=== PATIENT | male | born 1950 | race Caucasian/White ===

== ENCOUNTER 2016-11-19 09:36 | Emergency (ER) | payer BC, OTHER ==
[2016-11-19 09:50] VITALS: BP 137/74
--- NOTE | 2016-11-19 10:21 | UC ---
Throat Pain/Nasal John HPI - HPI Summary HPI Summary: sore throat,cough, and left eye drainage ---4-5 days no fevers, 2 member of the family have strep - History of Current Complaint Chief Complaint: UCRespiratory Stated Complaint: THROAT AND EYE COMPLAINT Time Seen by Provider: 11/19/16 09:44 Hx Obtained From: Patient Onset/Duration: Gradual Onset, Lasting Days - 4, Still Present, Worse Since - past 2 days Severity: Moderate Pain Intensity: 4 Pain Scale Used: 0-10 Numeric Cough: Nonproductive Associated Signs & Symptoms: Positive: Nasal Discharge - Allergies/Home Medications Allergies/Adverse Reactions: Allergies Allergy/AdvReac Type Severity Reaction Status Date / Time Levofloxacin [From Levaquin] Allergy Severe Joint Pain Verified 11/19/16 09:53 leva Allergy Severe See Comment Uncoded 11/19/16 09:53 NSAID Allergy See Comment Uncoded 08/22/15 08:00 Home Medications: Home Medications Albuterol HFA INHALER* [Ventolin HFA Inhaler*] 11/19/16 [History] Mometasone/Formoter 200/5 MDI* [Dulera 200/5 MDI*] 11/19/16 [History] PMH/Surg Hx/FS Hx/Imm Hx Previously Healthy: No Cardiovascular History Of: Reports: Cardiac Disorders - arrythmias, Hypertension Respiratory History Of: Reports: Asthma - as child - Surgical History Surgical History: Yes Surgery Procedure, Year, and Place: double hernia - Family History Known Family History: Positive: None Family History: no cardiovascular issues in family lineage - Social History Occupation: Employed Full-time - [place] [employer] Lives: With Family Alcohol Use: Occasionally Substance Use Type: None Smoking Status (MU): Never Smoked Tobacco When Did the Patient Quit Smoking/Using Tobacco: 25 yrs ago - Immunization History Most Recent Influenza Vaccination: fall 2014 Most Recent Pneumonia Vaccination: 2013 Review of Systems Constitutional: Negative Skin: Negative Eyes: Drainage - left, Eye Redness - left ENT: Sore Throat Respiratory: Cough Cardiovascular: Negative Gastrointestinal: Negative Genitourinary: Negative Motor: Negative Neurovascular: Negative Musculoskeletal: Negative Neurological: Negative Psychological: Negative All Other Systems Reviewed And Are Negative: Yes Physical Exam Triage Information Reviewed: Yes Appearance: Well-Appearing, No Pain Distress, Well-Nourished Vital Signs: Initial Vital Signs Temp 97.8 F 11/19/16 09:43 Pulse 64 11/19/16 09:43 Resp 18 11/19/16 09:43 BP 137/74 11/19/16 09:43 Pulse Ox 100 11/19/16 09:43 Vital Signs Reviewed: Yes Eye Exam: Normal Eyes: Positive: Conjunctiva Inflamed, Discharge ENT Exam: Normal ENT: Positive: Normal ENT inspection, Hearing grossly normal, Pharynx normal, Nasal congestion, TMs normal. Negative: Nasal drainage, Tonsillar swelling, Tonsillar exudate, Trismus, Muffled/hoarse voice Dental Exam: Normal Neck exam: Normal Neck: Positive: Supple, Nontender, No Lymphadenopathy Respiratory Exam: Normal Respiratory: Positive: Chest non-tender, Lungs clear, Normal breath sounds, No respiratory distress, No accessory muscle use Cardiovascular Exam: Normal Cardiovascular: Positive: RRR, No Murmur, Pulses Normal, Brisk Capillary Refill Musculoskeletal Exam: Normal Musculoskeletal: Positive: Strength Intact, ROM Intact, No Edema Neurological Exam: Normal Neurological: Positive: Alert, Muscle Tone Normal Psychological Exam: Normal Skin Exam: Normal Diagnostics - Laboratory Diagnostic Studies Completed/Ordered: RST (-) Throat Pain/Nasal Course/Dx - Course Assessment/Plan: Polytrim opthalmic drops, increase fluids, otc pain relieves, full throat cultur (pt request as his was + after culture but not on rapid ) follow with pcp - Differential Dx/Diagnosis Differential Diagnosis/HQI/PQRI: Laryngitis, Otitis Media, Pharyngitis, Sinusitis, URI Provider Diagnoses: OS Conjuctivitis, URI Discharge - Discharge Plan Condition: Stable Disposition: HOME Prescriptions: Polymyx/Trimethoprim OPTH* [Polytrim OPHTH*] 1 drop LEFT EYE Q4H #1 btl Patient Education Materials: How to Use Eye Drops (ED), Upper Respiratory Infection (ED), Conjunctivitis (ED) Referrals: Stoney Cerna MD [Primary Care Provider] - If Needed
== END 2016-11-19 10:51 | disposition home or self-care (01) ==
LOC: UCEAST 09:36
DX: H10.9 Unspecified conjunctivitis (principal); I49.9 Cardiac arrhythmia, unspecified; I10 Essential (primary) hypertension; J45.909 Unspecified asthma, uncomplicated; J06.9 Acute upper respiratory infection, unspecified; Z88.3 Allergy status to other anti-infective agents
CPT/HCPCS: 87070; 87651; 99211; G0463

== ENCOUNTER 2017-03-23 09:39 | Emergency (ER) | payer BC ==
[2017-03-23 10:59] VITALS: BP 101/90
--- NOTE | 2017-03-23 11:39 | UC ---
Lower Extremity/Ankle HPI - HPI Summary HPI Summary: right 5th toe pain swelling and bruising right 2,3,4,5 toes pain right 5th toe - History of Current Complaint Chief Complaint: UCLowerExtremity Stated Complaint: FOOT INJURY Time Seen by Provider: 03/23/17 11:35 Hx Obtained From: Patient Onset/Duration: Sudden Onset, Lasting Days - 2, Still Present Severity Initially: Moderate Severity Currently: Moderate Pain Intensity: 6 Pain Scale Used: 0-10 Numeric Aggravating Factor(s): Standing, Ambulation Alleviating Factor(s): Rest, Ice Able to Bear Weight: Yes - with pain - Allergies/Home Medications Allergies/Adverse Reactions: Allergies Allergy/AdvReac Type Severity Reaction Status Date / Time Levofloxacin [From Levaquin] Allergy Severe Joint Pain Verified 03/23/17 10:56 leva Allergy Severe See Comment Uncoded 03/23/17 10:56 NSAID AdvReac EARS RING Uncoded 03/23/17 10:56 PMH/Surg Hx/FS Hx/Imm Hx Previously Healthy: Yes Endocrine History: Dyslipidemia Cardiovascular History: Hypertension Respiratory History: Asthma - Surgical History Surgical History: Yes Surgery Procedure, Year, and Place: double hernia AGE 2 - Family History Known Family History: Positive: None Family History: no cardiovascular issues in family lineage - Social History Occupation: Retired Lives: With Family Alcohol Use: Occasionally Substance Use Type: None Smoking Status (MU): Never Smoked Tobacco When Did the Patient Quit Smoking/Using Tobacco: 25 yrs ago - Immunization History Most Recent Influenza Vaccination: fall 2014 Most Recent Pneumonia Vaccination: 2013 Review of Systems Constitutional: Negative Skin: Negative Eyes: Negative ENT: Negative Respiratory: Negative Cardiovascular: Negative Gastrointestinal: Negative Genitourinary: Negative Motor: Decreased ROM - right 5th toe Neurovascular: Negative Musculoskeletal: Negative, Arthralgia - 2,3,4,5 right toes with bruising, Edema Neurological: Negative Psychological: Negative All Other Systems Reviewed And Are Negative: Yes Physical Exam Triage Information Reviewed: Yes Appearance: Well-Appearing, No Pain Distress, Well-Nourished Vital Signs: Initial Vital Signs Temp 98.5 F 03/23/17 10:57 Pulse 66 03/23/17 10:57 Resp 16 03/23/17 10:57 BP 101/90 03/23/17 10:57 Pulse Ox 97 03/23/17 10:57 Vital Signs Reviewed: Yes Eye Exam: Normal Eyes: Positive: Conjunctiva Clear ENT Exam: Normal ENT: Positive: Normal ENT inspection, Hearing grossly normal. Negative: Nasal congestion, Nasal drainage, Trismus, Muffled/hoarse voice Dental Exam: Normal Neck exam: Normal Neck: Negative: Supple, Nontender, No Lymphadenopathy Respiratory Exam: Normal Respiratory: Positive: Chest non-tender, No respiratory distress, No accessory muscle use Cardiovascular Exam: Normal Cardiovascular: Positive: RRR, Pulses Normal, Brisk Capillary Refill Musculoskeletal Exam: Normal Musculoskeletal: Positive: Strength Intact, ROM Intact, Edema @ - distal right foot Neurological Exam: Normal Neurological: Positive: Alert, Muscle Tone Normal Psychological Exam: Normal Skin Exam: Normal Diagnostics - Laboratory Diagnostic Studies Completed/Ordered: non-displaced right th metatarsal fx Lower Extremity Course/Dx - Course Course Of Treatment: cam boot, rice, tylenol follow with ortho - Differential Dx/Diagnosis Differential Diagnosis/HQI/PQRI: Contusion, Fracture (Closed), Sprain, Strain Provider Diagnoses: right fifth metatarsal fracture,no displacement-- Discharge - Discharge Plan Condition: Stable Disposition: HOME Patient Education Materials: Toe Fracture (ED), Foot Contusion (ED), RICE Therapy (ED) Referrals: Sammy Laboy MD [Medical Doctor] - 1 Week
--- NOTE | 2017-03-23 12:01 | RAD ---
INDICATION: Right foot pain COMPARISON: None TECHNIQUE: AP, lateral, and oblique views were obtained. FINDINGS: There is a nondisplaced fracture of the proximal phalanx of the fifth toe. There are no other fractures. There is associated soft tissue swelling. The joint spaces are maintained. IMPRESSION: FRACTURE FIFTH TOE.
== END 2017-03-23 12:28 | disposition home or self-care (01) ==
LOC: UCEAST 09:39
DX: S92.514A Nondisplaced fracture of proximal phalanx of right lesser toe(s), initial encounter for closed fracture (principal); S90.121A Contusion of right lesser toe(s) without damage to nail, initial encounter; X58.XXXA Exposure to other specified factors, initial encounter; Y93.9 Activity, unspecified; Y92.9 Unspecified place or not applicable; E78.5 Hyperlipidemia, unspecified; I10 Essential (primary) hypertension; J45.909 Unspecified asthma, uncomplicated; Z88.6 Allergy status to analgesic agent; Z88.1 Allergy status to other antibiotic agents; Z87.891 Personal history of nicotine dependence
CPT/HCPCS: 99212; G0463

== ENCOUNTER 2018-04-19 17:06 | Emergency (ER) | payer BC ==
[2018-04-19 18:36] VITALS: BP 138/77
--- NOTE | 2018-04-19 19:23 | UC ---
Hip/Pelvis Pain - HPI Summary HPI Summary: The patient is a 67 y/o M presenting to [facility] with a chief complaint of left hip pain that radiates to his left leg starting over the last few days. He reports that he has been exercising more with physical therapy, and he's been carrying heavy grocery bags. The pain is aggravated by ambulation and alleviated by rest. The aching pain is rated 5/10 in severity. He denies decreased ROM. He has hx of diabetes. - History Of Current Complaint Chief Complaint: UCLowerExtremity Stated Complaint: THIGH & HIP PAIN Time Seen by Provider: 04/19/18 18:55 Hx Obtained From: Patient Onset/Duration: Sudden Onset, Lasting Days, Still Present Severity Initially: Moderate Severity Currently: Moderate Pain Intensity: 5 Pain Scale Used: 0-10 Numeric Location: Discrete At: - left hip, Radiates To: - left leg Character Of Pain: Aching Aggravating Factor(s): Other - ambulation Alleviating Factor(s): Rest Associated Signs And Symptoms: Positive: Negative - decreased ROM Torso: 1 - left hip pain that radiates to left leg - Allergies/Home Medications Allergies/Adverse Reactions: Allergies Allergy/AdvReac Type Severity Reaction Status Date / Time MS Levofloxacin Allergy Severe Joint Pain Verified 04/19/18 18:37 [From Levaquin] leva Allergy Severe See Comment Uncoded 04/19/18 18:37 NSAID AdvReac EARS RING Uncoded 04/19/18 18:37 PMH/Surg Hx/FS Hx/Imm Hx Endocrine History: Other Other Endocrine History: NEGATIVE: diabetes Cardiovascular History: Hypertension Respiratory History: Asthma - Surgical History Surgical History: Yes Surgery Procedure, Year, and Place: double hernia AGE 2 - Family History Known Family History: Negative: Cardiac Disease, Hypertension, Diabetes Family History: no cardiovascular issues in family lineage - Social History Alcohol Use: None Substance Use Type: None Smoking Status (MU): Former Smoker When Did the Patient Quit Smoking/Using Tobacco: 25 yrs ago - Immunization History Most Recent Influenza Vaccination: fall 2014 Most Recent Pneumonia Vaccination: 2013 Review of Systems Motor: Other - NEGATIVE: decreased ROM Musculoskeletal: Other: - pain in left hip that radiates to left left All Other Systems Reviewed And Are Negative: Yes Physical Exam - Summary Physical Exam Summary: VITAL SIGNS: Reviewed. GENERAL: Patient is a well-developed and nourished male who is lying comfortable in the stretcher. Patient is not in any acute respiratory distress. HEAD AND FACE: Normocephalic EYES: PERRLA, EOMI x 2. EARS: Hearing grossly intact. MOUTH: Oropharynx within normal limits. NECK: Supple, trachea is midline, no adenopathy, no JVD, no carotid bruit. CHEST: Symmetric, no tenderness at palpation LUNGS: Clear to auscultation bilaterally. No wheezing or crackles. CVS: Regular rate and rhythm, S1 and S2 present, no murmurs or gallops appreciated. ABDOMEN: Soft, non-tender. Bowel sounds are normal. No abdominal abnormal pulsations. No hernias. EXTREMITIES: Full ROM in all major joints, no edema, no cyanosis or clubbing. No deformity, no ecchymosis or hematomas, good femoral pulse NEURO: Alert and oriented x 3. No acute neurological deficits. Speech is normal and follows commands. SKIN: Dry and warm Triage Information Reviewed: Yes Vital Signs: Initial Vital Signs Temp 98.4 F 04/19/18 18:31 Pulse 65 04/19/18 18:31 Resp 22 04/19/18 18:31 BP 138/77 04/19/18 18:31 Pulse Ox 100 04/19/18 18:31 Vital Signs Reviewed: Yes Hip Injury Course/Dx - Course Course Of Treatment: Patient is a 59-year-old male who presents to the urgent care with chief complaint of left hip pain. It seems that the patient has been overusing the hip and now is having some pain. There is no history of trauma. Therefore I believe that the patient does not have a fracture and there is no need for an x-ray. The patient is able to bear weight. Patient will be given a prescription for prednisone and hydrocodone. Patient will follow-up with primary care physician. Patient is hemodynamically stable alert and oriented 3. - Differential Dx/Diagnosis Provider Diagnoses: Hip pain. Overuse Discharge - Sign-Out/Discharge Documenting (check all that apply): Patient Departure - Patient will be discharged home. All imaging exams completed and their final reports reviewed: No Studies - Discharge Plan Condition: Stable Disposition: HOME Prescriptions: HYDROcodone/ACETAMIN 5-325 MG* [[place] 5-325 TAB*] 1 tab PO Q6H PRN #12 tab MDD 4 PRN Reason: Pain methylPREDNISolone [Medrol Dosepak 4 MG*] 0 mg PO .SEE LILI INSTRUCTION #1 tab Patient Education Materials: Arthralgia (ED), Hip Pain (ED) Referrals: Kerrie Guillaume MD [Primary Care Provider] - Additional Instructions: Take medications as instructed and adhere to plan Take Acetaminophen or ibuprofen for pain or fever Increase your fluid intake Return to the or go to the emergency department if symptoms worsen Follow-up with primary care physician in next 2-3 days - Billing Disposition and Condition Condition: STABLE Disposition: Home - Attestation Statements Document Initiated by Jose Angel: Yes Documenting Scribe: Betty Rodgers Provider For Whom Jose Angel is Documenting (Include Credential): Dr. Adithya Steele MD Scribe Attestation: Betty Galindo scribed for Dr. Adithya Steele MD on 04/19/18 at 2119. Scribe Documentation Reviewed: Yes Provider Attestation: The documentation as recorded by the Betty rainey accurately reflects the service I personally performed and the decisions made by me, Dr. Adithya Steele MD
== END 2018-04-19 19:28 | disposition home or self-care (01) ==
LOC: UCEAST 17:06
DX: M25.552 Pain in left hip (principal); M70.88 Other soft tissue disorders related to use, overuse and pressure other site; Y93.9 Activity, unspecified; Z88.6 Allergy status to analgesic agent; Z88.8 Allergy status to other drugs, medicaments and biological substances; Z87.891 Personal history of nicotine dependence
CPT/HCPCS: 99212; G0463